=== PATIENT | female | born 1940 | race Caucasian/White ===

== ENCOUNTER 2017-07-28 16:53 | Emergency (ER) | payer OTHER ==
[~2017-07-28] VITALS: Ht 162.6 cm; Wt 90.2 kg
[~2017-07-28 16:53] MED LIST: ADVAIR; ADVAIR HFA120 INHALA IH; ARICEPT10 MG PO; ATORVASTATIN CA10 MG PO; AZITHROMYCIN500 M1 PO; CARDIZEM CD,CA240 MG PO; CARDIZEM CD120 MG PO; CYANOCOBALAM1000 MCG PO; DELTASONE20 M1 PO; DIGITEK125 MC2 PO; DIGOXIN125 MCG PO; DULCOLAX10 MG PR; ELIQUIS5 MG PO; FLEET MINERAL133 ML PR; KLOR-CON 1010 ME1 PO; LASIX20 MG PO; LEVALBUTER1.25 MG/3 IH; LISINOPRIL20 MG PO; MILK OF MAGNESI10 ML PO; MONTELUKAST SOD10 MG PO; NAMENDA XR28 MG PO; NAMENDA XR7 MG PO; PANTOPRAZOLE SO40 MG PO; PRAVASTATIN SOD20 MG PO; PREDNISONE5 MG PO; PROAIR HFA8.5 GM IH; PROVENTIL,2.5 MG/3 M IH; QUETIAPINE FUMA25 MG PO; ROBITUSSIN DM118 ML PO; SALINE NASAL SP45 ML BOTH NARES; SIMVASTATIN10 MG PO; SINGULAIR10 MG PO; ST. JOSEPH ASPI81 MG PO; TRAZODONE HCL50 MG PO; TYLENOL REGULA325 MG PO; VENTOLIN17 GM IH; XOPENEX HF200 INHALA IH
[2017-07-28 17:36] LABS: INTER. NORMALIZED RATIO 1.2; PROTHROMBIN TIME 13.5 SEC (10.2-12.9)
[2017-07-28 17:40] LABS: CHLORIDE 94 mEq/L (99-109); POTASSIUM 3.6 mEq/L (3.7-5.4); SODIUM 134 mEq/L (136-147)
[2017-07-28 17:42] LABS: GLUCOSE 100 mg/dL (70-99)
[2017-07-28 17:43] LABS: ANION GAP 14 MEQ/L (2-14)
[2017-07-28 17:44] LABS: TOTAL BILIRUBIN 0.6 mg/dL (0.0-1.0)
[2017-07-28 17:45] LABS: ALKALINE PHOSPHATASE 106 IU/L (3-129)
[2017-07-28 17:46] LABS: GFR ESTIMATE (CALCULATED) 42 mL/min/
[2017-07-28 18:01] LABS: UREA NITROGEN (BUN) 24 mg/dL (9-23)
[2017-07-28 18:04] LABS: PTT 31.4 SEC (25-37)
[2017-07-28 18:14] LABS: MCH 33.4 PG (29.0-34.0); MCHC 34.5 G/DL (30.0-36.0); MCV 96.7 FL (83-99); MEAN PLAT.VOLUME 9.4 uM^3 (9.5-12.4); PLATELET COUNT 347 K/uL (156-360); RBC DIS.WIDTH-SD 42.9 % (39-53); RED BLOOD COUNT 4.55 M/uL (3.80-5.20); WHITE BLOOD COUNT 13.1 K/uL (4.1-10.2)
[2017-07-28 19:02] VITALS: BP 174/98
== END 2017-07-28 19:03 ==
LOC: EME 16:53
PROVIDERS: Emergency Medicine
DX: Z04.3 Encounter for examination and observation following other accident (principal); I48.91 Unspecified atrial fibrillation; J44.9 Chronic obstructive pulmonary disease, unspecified; F03.90 Unspecified dementia, unspecified severity, without behavioral disturbance, psychotic disturbance, mood disturbance, and anxiety; Z79.01 Long term (current) use of anticoagulants; I10 Essential (primary) hypertension; Z96.642 Presence of left artificial hip joint
CPT/HCPCS: 70450; 80053; 83605; 85027; 85610; 85730; 86850; 86900; 86901; 99281; 99284

== ENCOUNTER 2017-08-08 06:01 | Emergency (ER) | payer OTHER ==
[~2017-08-08] VITALS: Ht 165.1 cm; Wt 82.6 kg
[2017-08-08 07:37] LABS: EOSINOPHIL (%) 1.8 % (0-5); EOSINOPHIL COUNT 0.2 K/uL (0-0.3); HEMATOCRIT 39.4 % (36.0-46.0); IMMATURE GRANULOCYTE (%) 0.9 % (0.0-0.7); IMMATURE GRANULOCYTE COUNT 0.1 K/uL; LYMPHOCYTE COUNT 0.3 K/uL (1.0-2.8); MCH 32.5 PG (29.0-34.0); MCV 95.6 FL (83-99); MEAN PLAT.VOLUME 9.2 uM^3 (9.5-12.4); MONOCYTE (%) 7.8 % (3-12); MONOCYTE COUNT 0.7 K/uL (0-0.8); NEUTROPHIL (%) 86.2 % (45-76); PLATELET COUNT 313 K/uL (156-360); RBC DIS.WIDTH-CV 12.5 % (11.8-14.6); RED BLOOD COUNT 4.12 M/uL (3.80-5.20); WHITE BLOOD COUNT 9.3 K/uL (4.1-10.2)
[2017-08-08 07:43] LABS: INTER. NORMALIZED RATIO 1.3; PROTHROMBIN TIME 14.4 SEC (10.2-12.9)
[2017-08-08 08:14] LABS: ANION GAP 9 MEQ/L (2-14); CHLORIDE 95 MEQ/L (99-109); GFR ESTIMATE (CALCULATED) 57 mL/min/; GLUCOSE 85 mg/dL (70-99); POTASSIUM 3.3 MEQ/L (3.7-5.4); SAMPLE HEMOLYSIS CHECK 0; SAMPLE ICTERIC CHECK 0; SAMPLE LIPEMIA CHECK 0; SODIUM 133 MEQ/L (136-147); UREA NITROGEN (BUN) 22 mg/dL (9-23)
[2017-08-08 11:50] LABS: ADD MIUA? YES; BILIRUBIN NEGATIVE; BLOOD MODERATE; COLOR AMBER ((YELLOW)); GLUCOSE (STRIP) NEGATIVE; KETONES 5; LEUKOCYTES LARGE; NITRITE POSITIVE; PROTEIN (STRIP) 100; SPECIFIC GRAVITY 1.019 (1.000-1.030); UROBILINOGEN 0.2 MG/DL (0.2-1.0)
[2017-08-08 11:55] LABS: BACTERIA 3+ /HPF; EPITHELIAL CELLS 1+ /HPF; HYALINE CASTS 15-20 /LPF; MUCUS 4+ /LPF; RED BLOOD CELLS 0-5 /HPF (0-5); WHITE BLOOD CELLS TNTC /HPF (0-5)
[2017-08-08] MEDS ORDERED: CIPRO500 MG PO (12:52)
[2017-08-08 13:22] VITALS: BP 174/86
== END 2017-08-08 13:22 ==
LOC: EME → EDBD 06:01 → EME 06:01
PROVIDERS: Emergency Medicine
DX: S70.02XA Contusion of left hip, initial encounter (principal); N39.0 Urinary tract infection, site not specified; I48.91 Unspecified atrial fibrillation; J44.9 Chronic obstructive pulmonary disease, unspecified; I10 Essential (primary) hypertension; F02.80 Dementia in other diseases classified elsewhere, unspecified severity, without behavioral disturbance, psychotic disturbance, mood disturbance, and anxiety; G30.9 Alzheimer's disease, unspecified; W19.XXXA Unspecified fall, initial encounter; Y92.129 Unspecified place in nursing home as the place of occurrence of the external cause; Z96.642 Presence of left artificial hip joint
CPT/HCPCS: 70450; 71010; 73030; 73080; 73090; 73130; 73502; 80048; 81003; 85025; 85610; 87077; 87086; 87186; 93005; 99281; 99284

== ENCOUNTER 2017-08-25 20:03 | Emergency (ER) | payer OTHER ==
[~2017-08-25] VITALS: Ht 167.6 cm; Wt 82.3 kg
[~2017-08-25 20:03] MED LIST changes: +CIPRO500 MG PO
[2017-08-25 21:44] LABS: APPEARANCE CLEAR ((CLEAR)); BILIRUBIN NEGATIVE; BLOOD SMALL; COLOR YELLOW ((YELLOW)); GLUCOSE (STRIP) NEGATIVE; KETONES NEGATIVE; LEUKOCYTES NEGATIVE; NITRITE NEGATIVE; PROTEIN (STRIP) NEGATIVE; SPECIFIC GRAVITY 1.011 (1.000-1.030); UROBILINOGEN 0.2 MG/DL (0.2-1.0)
[2017-08-25 21:51] LABS: BACTERIA NONE SEEN /HPF; EPITHELIAL CELLS RARE /HPF; MUCUS NONE SEEN /LPF; UCUL ADDED? NO; WHITE BLOOD CELLS 0-5 /HPF (0-5)
[2017-08-25 21:56] LABS: HEMATOCRIT 38.2 % (36.0-46.0); HEMOGLOBIN 13.4 G/DL (11.9-15.5); MCH 33.1 PG (29.0-34.0); MCHC 35.1 G/DL (30.0-36.0); MCV 94.3 FL (83-99); PLATELET COUNT 378 K/uL (156-360); RBC DIS.WIDTH-CV 12.6 % (11.8-14.6); RBC DIS.WIDTH-SD 44.2 % (39-53); RED BLOOD COUNT 4.05 M/uL (3.80-5.20)
[2017-08-25 22:07] LABS: CHLORIDE 93 mEq/L (99-109); POTASSIUM 3.8 mEq/L (3.7-5.4); SODIUM 131 mEq/L (136-147)
[2017-08-25 22:08] LABS: GLUCOSE 115 mg/dL (70-99)
[2017-08-25 22:12] LABS: GFR ESTIMATE (CALCULATED) 57 mL/min/
[2017-08-25 22:13] LABS: UREA NITROGEN (BUN) 19 mg/dL (9-23)
[2017-08-25 22:20] LABS: TROP-I INTERPRETATION NEGATIVE; TROPONIN-I 0.05 ng/mL (0.0-0.30)
[2017-08-26 00:53] VITALS: BP 148/87
== END 2017-08-26 00:56 ==
LOC: EME 20:03
PROVIDERS: Emergency Medicine
DX: M54.9 Dorsalgia, unspecified (principal); M48.56XD Collapsed vertebra, not elsewhere classified, lumbar region, subsequent encounter for fracture with routine healing; G31.89 Other specified degenerative diseases of nervous system; M40.40 Postural lordosis, site unspecified; I67.82 Cerebral ischemia; M50.30 Other cervical disc degeneration, unspecified cervical region; J45.909 Unspecified asthma, uncomplicated; I10 Essential (primary) hypertension; M31.6 Other giant cell arteritis; F02.80 Dementia in other diseases classified elsewhere, unspecified severity, without behavioral disturbance, psychotic disturbance, mood disturbance, and anxiety; G30.9 Alzheimer's disease, unspecified; W18.30XA Fall on same level, unspecified, initial encounter; Y92.122 Bedroom in nursing home as the place of occurrence of the external cause; Z79.01 Long term (current) use of anticoagulants; Z91.81 History of falling; Z96.642 Presence of left artificial hip joint
CPT/HCPCS: 70450; 71046; 72125; 72131; 72170; 80048; 81003; 84484; 85027; 93005; 99281; 99285

== ENCOUNTER 2017-09-27 20:45 | Emergency (ER) | payer OTHER ==
[~2017-09-27] VITALS: Ht 162.6 cm; Wt 77.2 kg
[2017-09-27 21:15] LABS: HEMATOCRIT 41.5 % (36.0-46.0); HEMOGLOBIN 14.5 G/DL (11.9-15.5); MCH 32.7 PG (29.0-34.0); MCHC 34.9 G/DL (30.0-36.0); MCV 93.7 FL (83-99); PLATELET COUNT 317 K/uL (156-360); RBC DIS.WIDTH-CV 12.8 % (11.8-14.6); RBC DIS.WIDTH-SD 43.8 % (39-53); RED BLOOD COUNT 4.43 M/uL (3.80-5.20); WHITE BLOOD COUNT 9.3 K/uL (4.1-10.2)
[2017-09-27 21:29] LABS: ALBUMIN 3.5 g/dL (3.2-4.8); CHLORIDE 83 mEq/L (99-109); POTASSIUM 2.9 mEq/L (3.7-5.4); SODIUM 130 mEq/L (136-147)
[2017-09-27 21:30] LABS: GLUCOSE 109 mg/dL (70-99); TOTAL PROTEIN 6.5 g/dL (6.4-8.3)
[2017-09-27 21:32] LABS: TOTAL BILIRUBIN 0.6 mg/dL (0.0-1.0)
[2017-09-27 21:34] LABS: ALKALINE PHOSPHATASE 185 IU/L (3-129); CREATININE 0.8 mg/dL (0.6-1.3); GFR ESTIMATE (CALCULATED) > 59 mL/min/
[2017-09-27 21:35] LABS: UREA NITROGEN (BUN) 14 mg/dL (9-23)
[2017-09-27 21:36] LABS: AST (GOT) 49 IU/L (2-34)
[2017-09-27 21:37] LABS: ALT (GPT) 55 IU/L (3-49)
[2017-09-27 21:46] LABS: DIGOXIN 0.5 ng/mL (0.8-2.0)
[2017-09-27 22:34] LABS: APPEARANCE CLOUDY ((CLEAR)); BILIRUBIN NEGATIVE; BLOOD SMALL; COLOR AMBER ((YELLOW)); GLUCOSE (STRIP) NEGATIVE; KETONES NEGATIVE; LEUKOCYTES LARGE; NITRITE POSITIVE; PROTEIN (STRIP) 100; SPECIFIC GRAVITY 1.017 (1.000-1.030)
[2017-09-27 22:48] LABS: BACTERIA 1+ /HPF; EPITHELIAL CELLS RARE /HPF; MUCUS NONE SEEN /LPF; UCUL ADDED? YES; WHITE BLOOD CELLS TNTC /HPF (0-5)
[2017-09-28 00:32] VITALS: BP 162/90
[2017-09-28 00:58] LABS: TROP-I INTERPRETATION NEGATIVE; TROPONIN-I 0.11 ng/mL (0.0-0.30)
== END 2017-09-28 00:33 | disposition home or self-care (01) ==
LOC: EME 20:45
DX: N39.0 Urinary tract infection, site not specified (principal); B96.20 Unspecified Escherichia coli [E. coli] as the cause of diseases classified elsewhere; E87.6 Hypokalemia; J45.909 Unspecified asthma, uncomplicated; I10 Essential (primary) hypertension; J43.9 Emphysema, unspecified; G30.9 Alzheimer's disease, unspecified; Z96.642 Presence of left artificial hip joint
CPT/HCPCS: 70450; 71045; 80053; 80162; 81003; 84484; 85027; 87077; 87086; 87186; 93005; 99281; 99285; J0696; J3480